=== PATIENT | female | born 1955 | race Caucasian/White ===

== ENCOUNTER 2017-12-10 07:52 | Emergency (ER) | payer BC ==
[~2017-12-10] VITALS: Ht 162.6 cm; Wt 75.7 kg
[2017-12-10 07:59] VITALS: BP_SYST 154
[2017-12-10] MEDS ORDERED: LIDOCAINE 1% 10 MG/ML, 20 ML MDV INJ ONE (08:45)
== END 2017-12-10 09:26 | disposition home or self-care (01) ==
LOC: SED 07:52
DX: L02.212 Cutaneous abscess of back [any part, except buttock and flank] (principal)
CPT/HCPCS: 99283; 99284

== ENCOUNTER 2018-02-18 03:23 | Emergency (ER) | payer BC ==
[~2018-02-18] VITALS: Ht 162.6 cm; Wt 74.8 kg
--- NOTE | 2018-02-18 03:25 | NUR ---
Patient to ER bed 8 to gown for evaluation. Side rails up. Report given to KEVEN MORENO.
[2018-02-18 03:33] VITALS: BP_SYST 155
--- NOTE | 2018-02-18 03:40 | NUR ---
Patient AAO x4, brought in by daughter for s/p fall at work at approximately 11:45 [address] yesterday [address] of work. Patient states " the pavement was uneven and she tripped and fell", states she "landed on left side" of body. Patient is unsure of loss of consciousness, C/O dizziness, disorientation, and "coccyx pain" 11/29. Prior to ED arrival patient states she took Mobic RX from home. C/O left knee and lower back pain. Denies shortness of breath. Will continue to monitor.
--- NOTE | 2018-02-18 04:15 | NUR ---
ER at bedside examining patient.
--- NOTE | 2018-02-18 05:30 | NUR ---
Patient resting quietly. No acute distress noted.
[2018-02-18] MEDS ORDERED: HYDROcodone/ACETAMIN 10-325 MG TAB PO ONE (05:45)
--- NOTE | 2018-02-18 06:00 | NUR ---
Patient assisted to bathroom with wheelchair. Patient able to transfer from bed to wheelchair, and walk in a hopping fashion to use the bathroom from wheelchair to . No acute distress noted.
--- NOTE | 2018-02-18 06:18 | NUR ---
Patient given re-usable ice packs to use at home.
[2018-02-18 06:20] VITALS: BP_SYST 155
--- NOTE | 2018-02-18 06:20 | NUR ---
Patient given written and verbal discharge instructions and verbalizes understanding. ER MD Dr. Humphreys discussed with patient the results and treatment provided prior to discharge. Patient in stable condition. ID arm band removed. Rx of House 3mg-325mg given. Patient educated on pain management and to follow up with PMD. Pain Scale 2/10, tolerable by patient. Opportunity for questions provided and answered. Patient and daughter state they will get final CT result in 1-2 days from medical records.
== END 2018-02-18 06:20 | disposition home or self-care (01) ==
LOC: SED 03:23
DX: S32.2XXA Fracture of coccyx, initial encounter for closed fracture (principal); S09.90XA Unspecified injury of head, initial encounter; W01.0XXA Fall on same level from slipping, tripping and stumbling without subsequent striking against object, initial encounter; Y93.89 Activity, other specified; Y92.89 Other specified places as the place of occurrence of the external cause; Y99.8 Other external cause status
CPT/HCPCS: 70450-TC; 72125-TC; 72192-TC; 99284